=== PATIENT | female | born 1960 | race Caucasian/White ===

== ENCOUNTER 2017-03-24 12:10 | Emergency (ER) | payer MEDICAID, MEDICARE, OTHER ==
--- OUTSIDE RECORDS SUMMARY | 2017-03-24 15:04 | XMS REPORT ---
:1960 External Reference #:[id number] Author Organization [facility] Address [address] [address] Phone [phone] Care Team Providers Name Role Phone Radha Acosta MD Care Team Information Business Consultant Unavailable Payers Type Date Identification Numbers Payment Provider Subscriber Commercial Policy Number: [id number] [employer] Medicare Erika James PayID: [id number] [address] [place] [address] Medigap Part B Policy Number: [id number] Medicaid ### >11 Erika James PayID: [id number] [address] [place] [address] Medigap Part B Effective: 2012 Policy Number: Medicare Erika Perestonirosalba [id number] Expires: 2015 PayID: [id number] [address] [place] [address] Problems Date Description Provider Status Onset: 08/22/2012 Tetraplegia Harpal Martinez DO Active Onset: 06/11/2010 Hypothyroidism Harpal Martinez DO Active Onset: 06/11/2010 Neurogenic bladder Harpal Martinez DO Active Onset: 06/11/2010 Neck pain Harpal Martinez DO Active Onset: 06/11/2010 Constipation Harpal Martinez DO Active Onset: 06/11/2010 Anxiety state Harpal Martinez DO Active Onset: 02/20/2014 Autonomic dysreflexia Harpal Martinez DO Active Onset: 02/20/2014 Mixed hyperlipidemia Harpal Martinez DO Active Onset: 02/20/2014 Menopausal and postmenopausal disorders Harpal Martinez DO Active Onset: 10/17/2014 Vitamin D deficiency Active Onset: 10/17/2014 Postmenopausal state Active Onset: 10/17/2014 Primary hyperoxaluria Active Onset: 10/17/2014 Urine finding Active Onset: 10/17/2014 Hypercalciuria Active Onset: 10/15/2014 Paraplegic immobility syndrome Active Onset: 01/30/2014 Kidney stone Active Onset: 01/14/2014 Urinary bladder stone Active Onset: 05/01/2013 Finding of urological device Active Onset: Urinary tract infectious disease Active Onset: Kidney stone Active Onset: 11/19/2014 Lower urinary tract infectious disease Active Onset: 10/28/2015 Type 2 diabetes mellitus Harpal Martinez DO Active Onset: 10/28/2015 Chronic nonalcoholic liver disease Harpal Martinez DO Active Onset: 10/28/2015 Complete tetraplegia due to lesion at Harpal Martinez DO Active C5-C7 level Onset: 03/02/2016 Late effect of spinal cord injury Harpal Martinez DO Active Family History Date Family Member(s) Problem(s) Comments Mother Hypertension Mother Hypercholesterolemia Mother Pituitary Adenoma Mother Sleep Apnea Mother Osteoarthritis Mother Anxiety Paternal Grandfather Heart Disease Maternal Grandfather Heart Disease Social History Type Date Description Comments Marital Status Single Lives With Mother And Father 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 Allergies, Adverse Reactions, Alerts Date Description Reaction Status Severity Comments 05/09/2013 Levofloxacin active 02/20/2014 Latex active 01/23/2010 Shellfish-Derived Products active 02/20/2014 Levaquin active 02/20/2014 Sulfa Drugs active 02/20/2014 Erythromycin active 01/16/2013 Other Diarrhea active 08/03/2011 Contrast Dye active Severe 08/03/2011 Sulfa Drugs Cross Reactors Swelling active Severe Medications Medication Date Status Form Strength Qnty SIG Indications Ordering Provider Metformin HCL ER 03/07/ Active Tablets ER 500mg 30tabs 1 by E11.9 Cunning 2018 24HR mouth m, Radha, daily MD with first bite of evening meal Urocare Quick 01/05/ Active Misc Medium 1units Use as Michelle, Drain Valve 2016 1/4" X 18 directed Harpal DO Fenofibrate 11/01/ Active Tablets 160mg 90tabs 1 by E78.2 Michelle, 2016 mouth Harpal, every day DO Levothyroxine 11/01/ Active Tablets 75mcg 30tabs 1 by E03.9 Cunningha Sodium 2016 mouth Radha naranjo, every day first thing in morning, no food or meds for 30min Freestyle Test 09/13/ Active Strips 100uni use to E11.9 Michelle, 2016 ts test Harpal every DO morning Freestyle 09/13/ Active Ea 1units Use as E11.9 Michelle, 2016 Directed DO Harpal Freestyle Lite 02/16/ Active 1units Use To Michelle, Meter 2016 Test Harpal Blood DO Sugar Onetouch Delica 08/18/ Active Misc 100uni Use To E11.9 Michelle, Lancets Extra 2015 ts Test Each Lou Rowan 33G Morning DO Docqlace 06/22/ Active Capsules 100mg 60caps Take One K59.00 2015 Capsule Harpal By Mouth DO Twice A Day Allevyn Adhesive 06/16/ Active Pads 3"X3" 10unit Michelle, 2015 s Harpal DO Vitamin D 10/17/ Active Tablets 1000Unit 30tabs Take 1 E55.9 Unknown (Cholecalciferol 2014 tablet by ) mouth daily. Chlorthalidone 10/17/ Active Tablets 25mg 30tabs Take 1/2 R60.0 Jarad, 2015 tab (12.5 Mahmoud mg) by mouth daily. Vinyl Gloves 07/26/ Active Misc 1Box Use as Michelle, 2014 Directed DO Harpal Onetouch Ultra 07/11/ Active Strips 50unit Use To E11.9 Michelle, Blue 2014 s Test Each Harpal, Morning DO Lancet 07/11/ Active A4258 200uni use as E11.9 Michelle, 2014 ts directed DO Harpal Oxybutynin 03/14/ Active Tablets 5mg 60tabs take one N31.1 Cunningha Chloride 2014 tablet by Radha naranjo mouth MD twice a day SF 01/27/ Active Gel 1.1% Michelle, 2009 DO Harpal Mupirocin 01/27/ Active Ointment 2% 22unit Apply Michelle, 2009 s Three Harpal, Times A DO Day as Needed Baclofen / Active Tablets 20mg 120tab Take 30 G82.50 Michelle, s MG In Am Harpal, , Noon DO Take 20 MG, 30 MG At Night S14.125S Diclofenac Active Gel 1% as needed Unknown Sodium Miralax Active Powder 17 grams in 8 oz Unknown of fluid every day as needed constipation Artificial Active Solution 0.1-0. as Needed Unknown Tears 3% Alpha Lipoic Active Tablets 200mg qd Unknown Acid Probiotic Active Capsules qd Unknown Acidophilus Alcohol Swab 09/13/2016 - Hx 100u Use as Directed Michelle, HLF FRST 02/26/2017 nits Daily DO Harpal Freestyle 28G 07/26/2016 - Hx 100u use to test E11. Michelle, Lancets 09/13/2016 nits every morning 9 DO Harpal E13.9 SM Alcohol Prep 04/14/2016 - Hx Pads 70% 100units Use as Needed Michelle , 02/26/2017 DO Harpal Gloves, Exam 04/14/2016 - Hx 100units Wear as Michelle, Vinyl LG 02/26/2017 Needed DO Harpal Augmentin 03/01/2016 - Hx Tablets 875-12 1 by mouth N39 Unknown 03/11/2016 5mg twice a day .0 Augmentin 12/23/2015 - Hx Tablets 500-12 20tabs 1 by mouth H65 Michelle, 03/02/2016 5mg twice a day .02 DO Harpal Prednisone 12/23/2015 - Hx Tablets 20mg 10tabs 1 by mouth H68 Michelle, 03/02/2016 twice a day .00 Harpal, 3 DO Fluticasone 12/16/2015 - Hx Suspension 50mcg/ 1units 1 spray each H91 Digiovanna, Propionate 03/09/2016 Act nostril daily .93 Mariposa, CATH LAB Gloves,DMP 09/22/2015 - Hx 100units use as needed Michelle, Syn/Med 02/26/2017 DO Harpal Alcohol Prep 08/19/2015 - Hx Pads 70% 100units Use as Needed Michelle, Pads 04/14/2016 DO Harpal Red Yeast Rice 07/09/2015 - Hx Tablets 600mg 1 by mouth E78 Michelle, 03/09/2016 twice daily. .2 DO Harpal Acidophilus 07/09/2015 - Hx Tablets 1 tab by Michelle, 02/26/2017 mouth daily. DO Harpal Sensi-Care 06/17/2015 - Hx Ointment 49-15% 2712gm use as Michelle, Protective 02/26/2017 directed Harpal Barrier after bowel DO movement Manual 04/08/2015 - Hx 1units use as G82 Michelle, Wheelchair 02/26/2017 directed .50 DO Harpal Phyphysical 04/08/2015 - Hx evaluation Michelle, Therapy 02/26/2017 and treatment DO Harpal Gloves, DSP 03/06/2015 - Hx 100units use as needed Michelle, Syn/Med 09/22/2015 DO Harpal Low Airloss 02/27/2015 - Hx 1units use as G82 Michelle, Mattress, 02/26/2017 directed .50 Kerry Rowan dx:g82.50 DO Mattress Replacement System W Air Mattress 02/26/2015 - Hx 1units use as G82 Michelle, 02/26/2017 directed .50 Harpal, dx:g82.50 DO Senna-Lax 12/19/2014 - Hx Tablets 8.6mg 60tabs 21 by mouth Michelle, 05/19/2015 every night Harpal, as needed DO Docqlace 12/10/2014 - Hx Capsules 100mg 60caps Take One Michelle, 12/19/2014 Capsule By Harpal, Mouth Twice A DO Day Potassium 10/17/2014 - Hx Tablets ER 10Meq 60tabs Take 1 tablet Unknown Chloride ER 02/11/2015 by mouth Two Times Daily. Ciprofloxacin 09/25/2014 - Hx Solution 0.3% 5ml 2 drops to 372 Harding, HCL 10/02/2014 each eye four .00 Richard, DO times a day x 1 week Clotrimazole 07/11/2014 - Hx Lozenges 10mg QS 1 PO Five 112 Michelle, 12/19/2014 Times Daily .0 Harpal, For 14 Days DO pv Alcohol Prep 04/25/2014 - Hx 100units Use as Michelle, Pads 04/25/2014 Directed Harpal, DO pv Alcohol Prep 04/25/2014 - Hx Pads 100units Use as Needed Michelle, 08/19/2015 Harpal, DO Tizanidine HCL 05/16/2013 - Hx Tablets 2mg Take 2 mg by Unknown 05/19/2015 mouth every 8 (eight) hours as needed. Ventolin HFA 07/22/2012 - Hx Aerosol 108mcg 1units 2 puffs po q Digiovanna, 05/19/2015 /Act 4 hours prn Mariposa, LAVERNE Valacyclovir HCL 03/23/2011 - Hx Tablets 1gm 4tabs take 2 Michelle, 05/19/2015 tablets every Harpal, 12 hours for DO 2 doses if needed for cold sores Polyethylene 11/04/2010 - Hx Powder 3350NF 537gm 17 gms in 8 Michelle, Glycol 3350 12/19/2014 oz of water Harpal, po q d DO Tegaderm Ag Mesh 10/07/2010 - Hx Pads 2"X2" 3Boxes Use as Michelle, Dressing With 06/17/2015 Directed Aaron Rowan 2"X2" DO Docusate Sodium 01/27/2010 - Hx Capsules 100mg 60caps 1 by mouth K59 Michelle, 12/23/2015 twice a day .00 Harpal, DO Levothyroxine 01/23/2010 - Hx Tablets 50mcg 90tabs Take One E03 Michelle, Sodium 11/01/2016 Tablet By .9 Harpal, Mouth Every DO Day Tizanidine HCL - Hx Tablets 1mg 2 Tab PO Am; G82 Cowdery, 08/23/2016 1/4 Tab PO .50 Kirstin R Noon; 2 Tab PO Q hs G90.4 Senna Lax - Hx Tablets 8.6mg Take 1 tablet K59.00 Unknown 07/09/2015 by mouth every other day. Meloxicam - Hx Tablets 15mg Take 15 mg by Unknown 12/19/2014 mouth daily. Polyethylene - Hx Powder 3350NF Take 17 g by K59.00 Unknown Glycol 3350 06/17/2015 mouth Two Times Daily. Potassium Chloride - Hx Tablets ER 10Meq 1 by mouth E87.6 Unknown ER 11/01/2016 twice a day Senna Laxative - Hx Tablets 8.6mg take 2 Unknown 03/06/2017 tablets by mouth at bedtime as needed Klonopin - Hx Tablets 0.5mg 1 PO QHS prn G82.50 Unknown 03/06/2017 G90.4 Tumeric - 03/07/2017 Hx qd Unknown Immunizations CPT Code Status Date Vaccine Reaction Lot # [id number] Given 12/01/2016 Afluria Or Fluvirin Flu Vac Given at [facility], Intramuscular Rte 281 Q2037 Given 11/21/2015 Fluvirin Immunization Given At Pharmacy [facility]/281 Q2037 Given 11/26/2014 Fluvirin Immunization Given At Pharmacy [facility]/281 [id number] Given 12/06/2012 Afluria Or Fluvirin Flu Vac Intramuscular 66905 Given 11/19/2010 Afluria Or Fluvirin Flu Vac Intramuscular 88287 Refused 03/07/2017 Pneumococcal 23 Immunization patient declined shot as Adult Or Immunosuppressed she wanted it in her Patient thigh, per dr acosta if pt wants the vaccine in the thigh she should go to pharmacy to get shot. keshia pinedo Vital Signs Date Vital Result Comment 03/07/2017 Heart Rate 64 /min BP Systolic 114 mmHg BP Diastolic 72 mmHg Respiratory Rate 14 /min Height 61 inches Last Known Height 11/01/2016 Heart Rate 78 /min BP Systolic 118 mmHg BP Diastolic 68 mmHg Respiratory Rate 18 /min 08/03/2016 Heart Rate 68 /min BP Systolic 120 mmHg BP Diastolic 76 mmHg Respiratory Rate 18 /min 06/23/2016 Heart Rate 76 /min BP Systolic 116 mmHg BP Diastolic 70 mmHg Respiratory Rate 16 /min 03/09/2016 Heart Rate 72 /min BP Systolic 110 mmHg BP Diastolic 62 mmHg Respiratory Rate 18 /min 03/02/2016 Heart Rate 78 /min BP Systolic 110 mmHg BP Diastolic 68 mmHg Respiratory Rate 18 /min 12/23/2015 Heart Rate 72 /min BP Systolic 130 mmHg BP Diastolic 72 mmHg Respiratory Rate 18 /min 12/16/2015 Body Temperature 98.7 F Heart Rate 50 /min BP Systolic 126 mmHg BP Diastolic 74 mmHg Respiratory Rate 16 /min O2 % BldC Oximetry 98 % Ra 10/28/2015 Heart Rate 60 /min BP Systolic 112 mmHg BP Diastolic 84 mmHg Respiratory Rate 16 /min 06/17/2015 Heart Rate 78 /min BP Systolic 108 mmHg BP Diastolic 68 mmHg Respiratory Rate 18 /min 05/19/2015 Heart Rate 78 /min BP Systolic 130 mmHg BP Diastolic 80 mmHg Respiratory Rate 18 /min 02/11/2015 Weight 93.62 lb BP Systolic 66 mmHg Respiratory Rate 18 /min 01/22/2015 Body Temperature 97.5 F 01/22/2015 Heart Rate 74 /min BP Systolic 94 mmHg BP Diastolic 56 mmHg Respiratory Rate 16 /min O2 % BldC Oximetry 99 % 01/20/2015 Weight 166.00 lb Height 62.01 inches 5'2.01" BMI (Body Mass Index) 30.35 kg/m2 12/19/2014 Heart Rate 78 /min BP Systolic 100 mmHg BP Diastolic 72 mmHg Respiratory Rate 18 /min 10/11/2014 Weight 103.88 lb Heart Rate 78 /min Respiratory Rate 18 /min 09/25/2014 Heart Rate 60 /min BP Systolic 100 mmHg BP Diastolic 60 mmHg Respiratory Rate 18 /min 07/11/2014 Heart Rate 66 /min BP Systolic 110 mmHg BP Diastolic 60 mmHg Respiratory Rate 18 /min 02/20/2014 Heart Rate 66 /min 64 Reg BP Systolic 90 mmHg BP Diastolic 66 mmHg BP Systolic Recheck 100 mmHg BP Diastolic Recheck 70 mmHg Respiratory Rate 18 /min N/A 01/04/2014 Heart Rate 66 /min BP Systolic 112 mmHg BP Diastolic 66 mmHg 10/03/2013 BP Systolic 110 mmHg BP Diastolic 60 mmHg 10/03/2013 Heart Rate 72 /min 68 Reg BP Systolic 102 mmHg BP Diastolic 62 mmHg Respiratory Rate 18 /min Results Test Date Test Result H/L Range Note Laboratory test finding 02/28/2017 TSH 2.15 uIU/mL 0.35-4.94 1 Free T4 1.46 ng/dL 0.70-1.48 1 Comprehensive Met Panel-[facility] 02/28/2017 Sodium 136 mmol/L 135-146 1, 2 Potassium 4.0 mmol/L 3.5-5.2 1 Chloride# 100 mmol/L 97-110 1, 3 Carbon Dioxide 25 mmol/L 24-34 1 Glucose 205 mg/dL High 70-105 1 Creatinine 0.7 mg/dL 0.5-1.4 1 Calcium 9.8 mg/dL 8.5-10.2 1 Total Protein 6.8 g/dL 6.0-8.0 1 Albumin 4.3 g/dL 3.6-4.9 1 Globulin 2.5 g/dL 2.0-3.5 1 A/G Ratio 1.7 Ratio 1.0-2.2 1 Total Bilirubin 0.4 mg/dL 0.1-1.3 1 Alkaline Phosphatase 60 U/L 24-140 1 Alt 13 U/L 3-42 1 Ast 12 U/L 8-42 1 Yennifer Egfr >60 >60 1, 4 Non Yennifer Egfr >60 >60 1, 5 Anion Gap 11 mmol/L 7-16 1, 6 BUN 29 mg/dL High 6-26 1 Lipid 02/28/2017 Cholesterol 148 mg/dL 50-199 1 Triglycerides 241 mg/dL High 30-200 1 HDL 27 mg/dL Low 35-85 1, 7 Chol/ HDL Ratio 5.4 ratio 3.7-5.6 1 VLDL 48 mg/dL High 2-29 1 LDL (Calc) 73 mg/dL 20-99 1, 8 Laboratory test 02/28/2017 Hepatitis C NON REACTIVE Non Reactive 1, 9 finding Virus Antibody S/[facility]atio([facility] CBC With Auto Diff 02/28/2017 WBC 6.2 K/uL 4.1-11.0 1 RBC 3.86 M/uL Low 4.00-5.40 1 Hemoglobin 11.4 gm/dL Low 12.0-16.0 1 Hematocrit 33.6 % Low 36.0-47.0 1 MCV 87.1 fL 80.0-97.0 1 MCH 29.5 pg 27.0-32.0 1 MCHC 33.9 g/dL 32.0-36.0 1 RDW 13.8 % 11.5-14.5 1 PLT Count 277 K/ul 140-400 1 MPV 10.3 FL 7.1-10.7 1 Neutrophil 59.6 % 35.0-75.0 1 Lymphocyte 30.4 % 16.0-52.0 1 Monocyte 7.7 % 2.0-10.0 1 Eosinophil 1.7 % 0.0-5.0 1 Basophil 0.6 % 0.0-4.0 1 Abs Neutrophils 3.7 K/uL 2.1-8.0 1 Abs Lymphocytes 1.9 K/uL 0.8-5.5 1 Abs Monocytes 0.5 K/uL 0.1-1.0 1 Abs Eosinophils 0.1 K/uL 0.0-0.5 1 Abs Basophils 0.0 K/uL 0.0-0.3 1 Hemoglobin A1c 02/28/2017 Hemoglobin A1c 7.5 % High 4.1-5.9 1 Estimated Average Glucose Calc 169 mg/dL High 71-140 1 Laboratory test 02/28/2017 Urine Culture Microbiology res 1, 10 finding <SEE NOTE> Laboratory test 10/28/2016 Microalbumin,Random 7.7 mg/L < 11 finding Urine 20.0 Laboratory test 10/25/2016 Vitamin 35.4 ng/mL 30.0-100 12, 13 finding D,25-Hydroxy .0 Lipid 10/25/2016 Cholesterol 191 mg/dL <200 12, 14 Triglycerides 477 mg/dL High <150 12, 15 HDL Cholesterol 31 mg/dL Low >45 12, 16 LDL-Cholesterol TNP mg/dL < 100 12, 17 Hepatic Panel (LFT) 10/25/2016 Total Protein 6.9 g/dL 6.4-8.2 12 Albumin 3.4 g/dL 3.4-5.0 12 Globulin 3.5 g/dL 1.9-4.3 12 Alb/Glob 1.0 ratio 12 Bilirubin,Total 0.4 mg/dL 0.2-1.0 12 Bilirubin,Direct < 0.1 mg/dL 0.0-0.2 12 Bilirubin,Indirect 0.3 mg/dL 0.0-0.9 12 Sgot/Ast 13 U/L Low 15-37 12, 18 SGPT/Alt 25 U/L 12-78 12 Alkaline Phosphatase 113 U/L 45-117 12 Laboratory test finding 10/25/2016 Thyroid Stim Hormone 4.30 uIU/mL High 0.30-4.20 12 Free T4 1.14 ng/dL 0.76-1.46 12 Basic (BMP) 10/25/2016 Glucose 142 mg/dL High 74-106 12 BUN 22 mg/dL High 7-18 12 Creatinine 0.6 mg/dL 0.6-1.3 12 Glom Filtration Rate, Estimate >60 mL/min >60 12 If >60 mL/min >60 12, 19 BUN/Creat 36.6 ratio 12 Sodium 137 mmol/L 136-145 12 Potassium 3.9 mmol/L 3.5-5.1 12 Chloride 102 mmol/L 98-107 12 Carbon Dioxide 28 mmol/L 21-32 12 Anion Gap 7 mEq/L Low 8-16 12 Calcium 8.9 mg/dL 8.5-10.1 12 Hemoglobin A1c 10/25/2016 Glycohemoglobin (A1c) 7.4 % High 4.2-6.5 12, 20 eAG 166 mg/dL 12 Genital Culture W/ Gram 08/09/2016 Gram Stain GRAM STAIN INDIC <SEE 21, 22 Stain NOTE> Gram Stain NO WHITE BLOOD C <SEE NOTE> 21, 23 Gram Stain FEW EPITHELIAL C <SEE NOTE> 21, 24 Genital Culture GENITAL STACY 21 CBC 06/18/2016 White Blood Count 6.5 K/uL 3.1-10.7 25 Red Blood Count 3.52 M/uL Low 3.90-5.40 25 Hemoglobin 10.2 gm/dL Low 11.6-15.8 25 Hematocrit 31.5 % Low 36.0-46.1 25 Mean Cell Volume 89.5 fl 80.9-99.0 25 Mean Corpuscular HGB 29.0 pg 25.9-32.7 25 Mean Corpuscular HGB Conc 32.4 g/dL 30.8-34.3 25 Platelet Count 218 K/uL 150-400 25 Red Cell Distri Width %CV 13.2 % 11.7-14.4 25 Mean Platelet Volume 12.3 fL 8.9-12.4 25 Basic Metabolic Panel 06/18/2016 Glucose 171 mg/dL High 74-106 25 BUN 10 mg/dL 7-18 25 Creatinine 0.7 mg/dL 0.6-1.3 25 Glom Filtration Rate, Estimate >60 mL/min >60 25 If >60 mL/min >60 25, 26 BUN/Creat 14.2 ratio 25 Sodium 140 mmol/L 136-145 25 Potassium 3.8 mmol/L 3.5-5.1 25 Chloride 104 mmol/L 98-107 25 Carbon Dioxide 28 mmol/L 21-32 25 Anion Gap 8 mEq/L 8-16 25 Calcium 8.7 mg/dL 8.5-10.1 25 Urinalysis With Microscopic 06/16/2016 Urine Color YELLOW Yellow 27 Urine Clarity CLEAR Clear 27 Urine Glucose - Dipstick NEGATIVE mg/dL Negative 27 Urine Bilirubin - Dipstick NEGATIVE Negative 27 Urine Ketone NEGATIVE mg/dL Negative 27 Urine Specific [place] <=1.005 Low 1.010-1.030 27 Urine Blood TRACE Negative 27 Urine PH 7.0 6.5-7.5 27 Urine Protein - Dipstick NEGATIVE mg/dL Negative 27 Urine Urobilinogen - Dipstick 0.2 E.U./dL 0.2-1.0 27 Urine Nitrite - Dipstick POSITIVE Negative 27 Urine Leuk Esterase SMALL Negative 27 Urine RBC 0-2 rbc/hpf 0-2 27 Urine WBC 0-2 wbc/hpf 0-7 27 Urine Epithelial Cells VERY FEW /lpf None Seen 27 Urine Bacteria FEW None Seen 27 Urine Amorph Sediment SMALL Negative 27 Source: URINE, CLEAN CAT <SEE 27, 28 NOTE> Culture If Indicated 06/16/2016 Culture If Indicated CULTURE TO FOLLO 27, 29 Comment Comment <SEE NOTE> Source: URINE, CLEAN CAT <SEE NOTE> 27, 30 Urine Culture 06/16/2016 Urine Culture MIXED URETHRAL F <SEE NOTE> 31, 32 Quantity > 100,000 CFU/mL 31, 33 CBS W/Automated Diff 06/16/2016 White Blood Count 7.9 K/uL 3.1-10.7 34 Red Blood Count 3.92 M/uL 3.90-5.40 34 Hemoglobin 11.5 gm/dL Low 11.6-15.8 34 Hematocrit 34.7 % Low 36.0-46.1 34 Mean Cell Volume 88.5 fl 80.9-99.0 34 Mean Corpuscular HGB 29.3 pg 25.9-32.7 34 Mean Corpuscular HGB Conc 33.1 g/dL 30.8-34.3 34 Platelet Count 263 K/uL 150-400 34 Red Cell Distri Width SD 41.4 fl 3-47 34 Red Cell Distri Width %CV 13.2 % 11.7-14.4 34 Mean Platelet Volume 12.1 fL 8.9-12.4 34 Neut% 62.6 % 40.4-72.8 34 Lymph % 29.1 % 20.0-42.0 34 [place] % 6.6 % 4.3-13.2 34 Eo% 1.4 % 0.0-6.6 34 Bas% 0.3 % 0.0-1.1 34 Neut# 4.94 K/uL 1.8-7.0 34 Lymph # 2.29 K/uL 1.0-4.0 34 [place] # 0.52 K/uL 0.3-0.9 34 Eos # 0.11 K/uL 0.0-0.5 34 Baso # 0.02 K/uL 0.0-0.1 34 Comprehensive Metabolic Panel 06/16/2016 Glucose 167 mg/dL High 74-106 34 BUN 18 mg/dL 7-18 34 Creatinine 0.6 mg/dL 0.6-1.3 34 Glom Filtration Rate, Estimate >60 mL/min >60 34 If >60 mL/min >60 34, 35 BUN/Creat 30.0 ratio 34 Sodium 137 mmol/L 136-145 34 Potassium 3.7 mmol/L 3.5-5.1 34 Chloride 102 mmol/L 98-107 34 Carbon Dioxide 28 mmol/L 21-32 34 Anion Gap 7 mEq/L Low 8-16 34 Calcium 8.5 mg/dL 8.5-10.1 34 Total Protein 6.9 g/dL 6.4-8.2 34 Albumin 3.2 g/dL Low 3.4-5.0 34 Globulin 3.7 g/dL 1.9-4.3 34 Alb/Glob 0.9 ratio 34 Bilirubin,Total 0.4 mg/dL 0.2-1.0 34 Sgot/Ast 22 U/L 15-37 34 SGPT/Alt 26 U/L 12-78 34 Alkaline Phosphatase 137 U/L High 45-117 34 Laboratory test finding 06/16/2016 Lipase 140 U/L 73-393 34 Urinalysis With Microscopic 04/20/2016 Urine Color YELLOW Yellow 36 Urine Clarity SL CLOUDY Clear 36 Urine Glucose - Dipstick NEGATIVE mg/dL Negative 36 Urine Bilirubin - Dipstick NEGATIVE Negative 36 Urine Ketone NEGATIVE mg/dL Negative 36 Urine Specific [place] 1.015 1.010-1.030 36 Urine Blood TRACE Negative 36 Urine PH 7.5 6.5-7.5 36 Urine Protein - Dipstick NEGATIVE mg/dL Negative 36 Urine Urobilinogen - Dipstick 0.2 E.U./dL 0.2-1.0 36 Urine Nitrite - Dipstick POSITIVE Negative 36 Urine Leuk Esterase LARGE Negative 36 Urine RBC 2-5 rbc/hpf 0-2 36 Urine WBC > 50 wbc/hpf High 0-7 36 Urine Epithelial Cells FEW /lpf None Seen 36 Urine Bacteria MODERATE None Seen 36 Urine Amorph Sediment MODERATE Negative 36 Culture If Indicated 04/20/2016 Culture If Indicated CULTURE TO FOLLO 36, 37 Comment Comment <SEE NOTE> Ast-GN67 04/20/2016 Nitrofurantoin 64 36 Ampicillin <=2 36 Cefazolin >=64 36 Ampicillin/Sulbactam 16 36 Ciprofloxacin <=0.25 36 Piperacillin/Tazobactam <=4 36 Ceftazidime <=1 36 Ceftriaxone <=1 36 Cefepime <=1 36 Levofloxacin <=0.12 36 Gentamicin 2 36 Tobramycin 2 36 Penicillin G 2 36 Tetracycline >=16 36 Nitrofurantoin <=16 36 Ciprofloxacin 1 36 Levofloxacin 1 36 Vancomycin 2 36 Urine Culture 04/20/2016 Urine Culture PROTEUS VULGARIS 36, 38 Quantity > 100,000 CFU/mL 36, 39 Urine Culture ENTEROCOCCUS CAMILA <SEE NOTE> 36, 40 Quantity > 100,000 CFU/mL 36, 41 Ast-GN67 03/10/2016 Nitrofurantoin 64 42 Trimethoprim/Sulfamethoxazole <=20 42 Ampicillin >=32 42 Cefazolin >=64 42 Ampicillin/Sulbactam >=32 42 Ciprofloxacin <=0.25 42 Piperacillin/Tazobactam <=4 42 Ceftazidime <=1 42 Ceftriaxone <=1 42 Cefepime <=1 42 Levofloxacin <=0.12 42 Gentamicin 2 42 Tobramycin 2 42 Culture Urine 03/10/2016 Urine Culture MORG. MORGANII S <SEE NOTE> 42, 43 Quantity > 100,000 CFU/mL 42, 44 CBC With Auto Diff 03/10/2016 White Blood Count 7.3 K/uL 3.1-10.7 42 Red Blood Count 3.85 M/uL Low 3.90-5.40 42 Hemoglobin 11.3 gm/dL Low 11.6-15.8 42 Hematocrit 33.8 % Low 36.0-46.1 42 Mean Cell Volume 87.8 fl 80.9-99.0 42 Mean Corpuscular HGB 29.4 pg 25.9-32.7 42 Mean Corpuscular HGB Conc 33.4 g/dL 30.8-34.3 42 Platelet Count 281 K/uL 155-360 42 Red Cell Distri Width SD 43.0 fl 3-47 42 Red Cell Distri Width %CV 13.8 % 11.7-14.4 42 Mean Platelet Volume 11.6 fL 8.9-12.4 42 Neut% 61.1 % 40.4-72.8 42 Lymph % 29.5 % 20.0-42.0 42 [place] % 6.7 % 4.3-13.2 42 Eo% 2.2 % 0.0-6.6 42 Bas% 0.5 % 0.0-1.1 42 Neut# 4.46 K/uL 1.8-7.0 42 Lymph # 2.15 K/uL 1.0-4.0 42 [place] # 0.49 K/uL 0.3-0.9 42 Eos # 0.16 K/uL 0.0-0.5 42 Baso # 0.04 K/uL 0.0-0.1 42 Anticoagulant Therapy? NO 42 BMP (Basic) 03/10/2016 Glucose 128 mg/dL High 74-106 42 BUN 24 mg/dL High 7-18 42 Creatinine 0.6 mg/dL 0.6-1.3 42 Glom Filtration Rate, Estimate >60 mL/min >60 42 If >60 mL/min >60 42, 45 BUN/Creat 40.0 ratio 42 Sodium 139 mmol/L 136-145 42 Potassium 3.6 mmol/L 3.5-5.1 42 Chloride 103 mmol/L 98-107 42 Carbon Dioxide 26 mmol/L 21-32 42 Anion Gap 10 mEq/L 8-16 42 Calcium 8.7 mg/dL 8.5-10.1 42 PTT (Partial 03/10/2016 Act Partial 31.8 seconds 23.4-35.0 42 Thromboplastin)RL Thrombo Time Anticoagulant Therapy? NO 42 PT With Inr 03/10/2016 Protime 13.2 seconds 12.0-14.4 42 Inr 1.0 0.9-1.1 42, 46 Anticoagulant Therapy? NO 42 Vitamin D,25-Hydroxy 10/22/2015 Vitamin D,25-Hydroxy 35.8 ng/mL 30.0- 100.0 47, 48 @[facility] Pat Id: [id number] 47 @[facility] Req #: [phone] 47 Free T4 10/22/2015 Free T4 1.31 ng/dL 0.76-1.46 47 @[facility] Pat Id: [id number] 47 @[facility] Req #: [phone] 47 Is Patient Fasting? Fasting 47 Thyroid Stim Hormone 10/22/2015 Thyroid Stim Hormone 3.19 uIU/mL 0.30- 4.20 47 @[facility] Pat Id: [id number] 47 @[facility] Req #: [id number] 47 Is Patient Fasting? Fasting 47 LDL Cholesterol Profile 10/22/2015 Cholesterol 165 mg/dL <200 47, 49 Triglycerides 467 mg/dL High <150 47, 50 HDL Cholesterol 30 mg/dL Low >40 47, 51 LDL-Cholesterol TNP mg/dL < 100 47, 52 @[facility] Pat Id: [id number] 47 @[facility] Req #: [id number] 47 Is Patient Fasting? Fasting 47 Microalbumin,Random Urine 10/22/2015 Microalbumin,Urine 6.1 mg/L < 20.0 47 @[facility] Pat Id: [id number] 47 @[facility] Req #: [id number] 47 Hemoglobin A1c 10/22/2015 Glycohemoglobin (A1c) 7.1 % High 4.2-6.3 47, 53 eAG 157 mg/dL 47 @[facility] Pat Id: [id number] 47 @[facility] Req #: [id number] 47 Basic Metabolic Panel 10/22/2015 Glucose 124 mg/dL High 74-106 47 BUN 17 mg/dL 7-18 47 Creatinine 0.6 mg/dL 0.6-1.3 47 Glom Filtration Rate, Estimate >60 mL/min >60 47 If >60 mL/min >60 47, 54 BUN/Creat 28.3 ratio 47 Sodium 138 mmol/L 136-145 47 Potassium 3.9 mmol/L 3.5-5.1 47 Chloride 104 mmol/L 98-107 47 Carbon Dioxide 26 mmol/L 21-32 47 Anion Gap 8 mEq/L 8-16 47 Calcium 8.6 mg/dL 8.5-10.1 47 @[facility] Pat Id: [id number] 47 @[facility] Req #: [id number] 47 Is Patient Fasting? Fasting 47 Liver Function Tests 10/22/2015 Total Protein 7.3 g/dL 6.4-8.2 47 Albumin 3.4 g/dL 3.4-5.0 47 Globulin 3.9 g/dL 1.9-4.3 47 Alb/Glob 0.9 ratio 47 Bilirubin,Total 0.4 mg/dL 0.2-1.0 47 Bilirubin,Direct 0.1 mg/dL 0.0-0.2 47 Bilirubin,Indirect 0.3 mg/dL 0.0-0.9 47 Sgot/Ast 13 U/L Low 15-37 47, 55 SGPT/Alt 20 U/L 12-78 47 Alkaline Phosphatase 104 U/L 45-117 47 @[facility] Pat Id: [id number] 47 @[facility] Req #: [id number] 47 Is Patient Fasting? Fasting 47 Microalbumin,Random Urine 02/06/2015 Microalbumin,Urine < 5.0 < 20.0 mg/L Glycohemoglobin A1c 02/05/2015 Glycohemoglobin (A1c) 6.1 % 4.2-6.5 56 eAG 128 mg/dL Microalbumin,Random Urine 02/05/2015 Microalbumin,Random Urine Canceled By Lab LDL Cholesterol Profile 02/05/2015 Cholesterol 176 mg/dL <2 57 00 Triglycerides 469 mg/dL High <150 58 HDL Cholesterol 28 mg/dL Low >45 59 LDL-Cholesterol See Note mg/dL < 100 60 BMP (Basic) 02/05/2015 Glucose 116 mg/dL High 74-106 BUN 17 mg/dL 7-18 Creatinine 0.6 mg/dL 0.6-1.3 Glom Filtration Rate, Estimate >60 mL/min >60 If >60 mL/min >60 61 BUN/Creat 28.3 ratio Sodium 137 mmol/L 136-145 Potassium 3.7 mmol/L 3.5-5.1 Chloride 106 mmol/L 98-107 Carbon Dioxide 24 mmol/L 21-32 Anion Gap 7 mEq/L Low 8-16 Calcium 9.0 mg/dL 8.5-10.1 Laboratory test finding 02/05/2015 Thyroid Stim Hormone 3.68 uIU/mL 0.36- 3.74 Free T4 1.30 ng/dL 0.76-1.46 Liver Function Tests 02/05/2015 Total Protein 7.0 g/dL 6.4-8.2 Albumin 3.3 g/dL Low 3.4-5.0 Globulin 3.7 g/dL 1.9-4.3 Alb/Glob 0.9 ratio Bilirubin,Total 0.4 mg/dL 0.2-1.0 Bilirubin,Direct 0.1 mg/dL 0.0-0.2 Bilirubin,Indirect 0.3 mg/dL 0.0-0.9 Sgot/Ast 10 U/L Low 15-37 62 SGPT/Alt 21 U/L 12-78 Alkaline Phosphatase 108 U/L 45-117 Laboratory test finding 02/05/2015 Vitamin D,25-Hydroxy 30.5 ng/mL 30.0- 100.0 63 Rout Urine W/ Micro -RL 10/30/2014 Color YELLOW 64 Appearance CLOUDY 64 Spec Grav Urine 1.011 (1.003-1.030) 64 PH Urine 6.0 (5.0-7.5) 64 Leuk Esterase 2+ (Neg) 64 Nitrite Urine POSITIVE (Neg) 64 Protein Urine NEGATIVE (Neg) 64 Glucose Urine NEGATIVE (Neg) 64 Ketone Urine NEGATIVE (Neg) 64 Urobilinogen 0.2 mg/dL (0-1.0) 64 Bilirubin Urine NEGATIVE (Neg) 64 Blood/HGB Urine 1+ (Neg) 64 Urine WBC * 6-10 [HPF] (0-5) 64 Urine RBC 0-2 [HPF] (0-2) 64 Bacteria 4+ [HPF] 64, 65 Basic (BMP) 10/30/2014 Sodium 136 mmol/L 134-142 66 Potassium 4.6 mmol/L 3.5-5.2 66 Chloride 103 mmol/L 97-109 66 Carbon Dioxide 25 mmol/L 24-34 66 Glucose 148 mg/dL High 70-105 66 BUN 20 mg/dL 6-26 66 Creatinine 0.6 mg/dL 0.5-1.4 66 Calcium 9.2 mg/dL 8.5-10.2 66 Anion Gap 13 mmol/L 6-14 66 Non Yennifer Egfr >60 >60 66, 67 Yennifer Egfr >60 >60 66, 68 Basic (BMP) 10/01/2014 Sodium 136 mmol/L 134-142 69 Potassium 4.4 mmol/L 3.5-5.2 69 Chloride 102 mmol/L 97-109 69 Carbon Dioxide 25 mmol/L 24-34 69 Glucose 113 mg/dL High 70-105 69 BUN 21 mg/dL 6-26 69 Creatinine 0.6 mg/dL 0.5-1.4 69 Calcium 9.4 mg/dL 8.5-10.2 69 Anion Gap 13 mmol/L 6-14 69 Non Yennifer Egfr >60 >60 69, 70 Yennifer Egfr >60 >60 69, 71 Laboratory test finding 10/01/2014 Hemoglobin A1c 6.5 % 4.1-6.5 69 Urine Culture 07/02/2014 Urine Culture See Note 72 Liver Function Tests 07/02/2014 Total Protein 7.3 g/dL 6.4-8.2 Albumin 3.5 g/dL 3.4-5.0 Globulin 3.8 g/dL 1.9-4.3 Alb/Glob 0.9 ratio Bilirubin,Total 0.5 mg/dL 0.2-1.0 Bilirubin,Direct 0.1 mg/dL 0.0-0.2 Bilirubin,Indirect 0.4 mg/dL 0.0-0.9 Sgot/Ast 14 U/L Low 15-37 73 SGPT/Alt 27 U/L 12-78 Alkaline Phosphatase 131 U/L High 45-117 Urinalysis With Microscopic 07/02/2014 Urine Color YELLOW Yellow Urine Clarity SL CLOUDY Clear Urine Glucose - Dipstick NEGATIVE mg/dL Negative Urine Bilirubin - Dipstick NEGATIVE Negative Urine Ketone NEGATIVE mg/dL Negative Urine Specific [place] 1.015 1.010-1.030 Urine Blood LARGE High Negative Urine PH 7.5 6.5-7.5 Urine Protein - Dipstick 100 mg/dL High Negative Urine Urobilinogen - Dipstick 0.2 E.U./dL 0.2-1.0 Urine Nitrite - Dipstick POSITIVE High Negative Urine Leuk Esterase LARGE High Negative Urine RBC >50 rbc/hpf High 0-2 Urine WBC > 50 wbc/hpf High 0-7 Urine Epithelial Cells FEW NONESEEN/lpf Urine Mucus SMALL NONESEEN Urine Amorph Sediment SMALL Negative Laboratory test finding 07/02/2014 Culture If Indicated See Note 74 Comment CBC W/Automated Diff 07/02/2014 White Blood Count 12.9 K/uL High 3.1-10.7 Red Blood Count 3.98 M/uL 3.90-5.40 Hemoglobin 11.7 gm/dL 11.6-15.8 Hematocrit 34.8 % Low 36.0-46.1 Mean Cell Volume 87.4 fl 80.9-99.0 Mean Corpuscular HGB 29.4 pg 25.9-32.7 Mean Corpuscular HGB Conc 33.6 g/dL 30.8-34.3 Platelet Count 251 K/uL 155-360 Red Cell Distri Width SD 41.9 fl 3-47 Red Cell Distri Width %CV 13.5 % 11.7-14.4 Mean Platelet Volume 12.4 fL 8.9-12.4 Neut% 76.4 % High 40.4-72.8 Lymph % 16.3 % Low 17.0-46.1 [place] % 6.2 % 4.3-13.2 Eo% 0.9 % 0.0-6.6 Bas% 0.2 % 0.0-1.1 Neut# 9.84 K/uL High 1.0-7.0 Lymph # 2.10 K/uL 1.8-7.0 [place] # 0.80 K/uL 0.3-0.9 Eos # 0.12 K/uL 0.0-0.5 Baso # 0.03 K/uL 0.0-0.1 Laboratory test finding 07/02/2014 Lipase 109 U/L 73-393 Urine Screen 07/02/2014 Urine Screen See Note 75 Basic Metabolic Panel 07/02/2014 Glucose 192 mg/dL High 74-106 BUN 32 mg/dL High 7-18 Creatinine 1.3 mg/dL 0.6-1.3 Glom Filtration Rate, Estimate 46 mL/min >60 If 55 mL/min >60 76 BUN/Creat 24.6 ratio Sodium 134 mmol/L Low 136-145 Potassium 4.0 mmol/L 3.5-5.1 Chloride 100 mmol/L 98-107 Carbon Dioxide 24 mmol/L 21-32 Anion Gap 10 mEq/L 8-16 Calcium 8.8 mg/dL 8.5-10.1 Basic (BMP) 06/25/2014 Sodium 136 mmol/L 134-142 77 Potassium 4.4 mmol/L 3.5-5.2 77 Chloride 104 mmol/L 97-109 77 Carbon Dioxide 23 mmol/L Low 24-34 77 Glucose 146 mg/dL High 70-105 77 BUN 29 mg/dL High 6-26 77 Creatinine 0.6 mg/dL 0.5-1.4 77 Calcium 9.4 mg/dL 8.5-10.2 77 Anion Gap 13 mmol/L 6-14 77 Non Yennifer Egfr >60 >60 77, 78 Yennifer Egfr >60 >60 77, 79 Laboratory test finding 06/25/2014 Hemoglobin A1c 7.7 % High 4.1-5.9 77 TSH 2.87 uIU/mL 0.35-4.94 77 Free T4 1.07 ng/dL 0.70-1.48 77 Lipid Treatment 06/25/2014 Cholesterol 190 mg/dL 50-199 77 Triglycerides 579 mg/dL High 30-150 77 HDL 25 mg/dL Low 45-85 77, 80 Chol/ HDL Ratio 7.6 ratio High 3.7-5.6 77 Alt 14 U/L 3-42 77 Ast 12 U/L 8-42 77 Laboratory test finding 06/25/2014 Direct LDL 72 mg/dL 20-99 77, 81 Laboratory test finding 04/26/2014 Polyp Colon And/Or See Note 82 Rectum Laboratory test finding 03/27/2014 HPV High Risk Negative Negative 83 Laboratory test finding 01/20/2014 Alb/Glob 0.9 ratio Albumin 3.5 g/dL 3.4-5.0 Alkaline Phosphatase 113 U/L 45-117 Anion Gap 11 mEq/L 8-16 BUN 21 mg/dL High 7-18 BUN/Creat 26.2 ratio Bilirubin,Total 0.4 mg/dL 0.2-1.0 Calcium 8.6 mg/dL 8.5-10.1 Carbon Dioxide 27 mmol/L 21-32 Chloride 105 mmol/L 98-107 Creatinine 0.8 mg/dL 0.6-1.3 Globulin 3.8 g/dL 1.9-4.3 Glom Filtration Rate, Estimate >60 mL/min >60 Glucose 109 mg/dL High 74-106 If >60 mL/min >60 84 Magnesium 1.8 mg/dL 1.8-2.4 Potassium 4.1 mmol/L 3.5-5.1 SGPT/Alt 28 U/L 12-78 Sgot/Ast 15 U/L 15-37 Sodium 139 mmol/L 136-145 Total Protein 7.3 g/dL 6.4-8.2 CBS W/Automated Diff 01/20/2014 Bas% 0.3 % 0.0-1.1 Baso # 0.01 K/uL 0.0-0.1 Eo% 1.7 % 0.0-6.6 Eos # 0.06 K/uL 0.0-0.5 Hematocrit 34.8 % Low 36.0-46.1 Hemoglobin 11.5 gm/dL Low 11.6-15.8 Lymph # 1.17 K/uL 0.8-3.4 Lymph % 33.9 % 17.0-46.1 Mean Cell Volume 91.6 fl 80.9-99.0 Mean Corpuscular HGB 30.3 pg 25.9-32.7 Mean Corpuscular HGB Conc 33.0 g/dL 30.8-34.3 Mean Platelet Volume 12.7 fL High 8.9-12.4 [place] # 0.21 K/uL Low 0.3-0.9 [place] % 6.1 % 4.3-13.2 Neut# 2.00 K/uL 1.0-7.0 Neut% 58.0 % 40.4-72.8 Platelet Count 277 K/uL 155-360 Red Blood Count 3.80 M/uL Low 3.90-5.40 Red Cell Distri Width %CV 13.6 % 11.7-14.4 Red Cell Distri Width SD 44.3 fl 3-47 White Blood Count 7.2 K/uL 3.1-10.7 Laboratory test finding 11/16/2013 BUN 18.0 mg/dL 7.0-18.0 BUN/Creat Ratio 25.7 ratio High 12.0-20.0 Calcium 9.5 mg/dL 8.7-10.5 Chloride 102.0 mmol/L 98.0-107.0 Co2 25.0 mmol/L 22.0-30.0 Creatinine-Serum 0.7 mg/dL 0.7-1.2 Glucose 207.0 mg/dL High 75.0-110.0 [place] 3.9 mmol/L 3.6-5.0 Sodium 139.0 mmil/L 137.0-145.0 eGFR 93.0 Laboratory test finding 10/03/2013 % A1c 6.4 % 4.1-6.5 Alt 19.0 U/L 9.0-52.0 Ast 13.0 U/L Low 14.0-36.0 BUN 22.0 mg/dL High 7.0-18.0 BUN/Creat Ratio 27.5 ratio High 12.0-20.0 Calcium 9.4 mg/dL 8.7-10.5 Chloride 104.0 mmol/L 98.0-107.0 Co2 25.0 mmol/L 22.0-30.0 Creatinine-Serum 0.8 mg/dL 0.7-1.2 FT4 1.21 ng/dL 0.75-1.54 Glucose 205.0 mg/dL High 75.0-110.0 [place] 4.1 mmol/L 3.6-5.0 Sodium 140.0 mmil/L 137.0-145.0 TSH 3.36 uIU/ml 0.50-6.00 eGFR 79.7 Lipid Panel 10/03/2013 Chol/HDL Ratio 6.9 ratio Cholesterol 193.0 mg/dL 50.0-199.0 HDL 28.0 mg/dL Low 45.0-86.0 LDL, Calculated 61.0 mg/dL 20.0-129.0 Triglycerides 520.0 mg/dL High 30.0-150.0 vLDL 104.0 ng/dL Laboratory test finding 02/21/2013 Urine Bacteria Moderate None Seen High Urine Bilirubin - Dipstick Negative Negative Urine Blood Negative Negative Urine Clarity SL Cloudy Clear Urine Color Yellow Yellow Urine Culture See Note 85 Urine Epithelial Cells Few None Seen /lpf Urine Glucose - Dipstick Negative mg/dL Negative Urine Ketone 15 mg/dL High Negative Urine Leuk Esterase Trace High Negative Urine Mucus Small None Seen Urine Nitrite - Dipstick Positive High Negative Urine PH 6.5 6.5-7.5 Urine Protein - Dipstick 100 mg/dL High Negative Urine RBC None Seen rbc/hpf 0-7 Urine Screen See Note 86 Urine Specific [place] >=1.030 1.010-1.030 Urine Trip Phos Crystals Moderate None Seen Urine Urobilinogen - Dipstick 0.2 E.U./dL 0.2-1.0 Urine WBC 5-10 wbc/hpf 0-7 Laboratory test finding 12/29/2012 Direct LDL Cholesterol 111 mg/dL High 0 -99 87 Laboratory test finding 12/29/2012 % A1c 5.8 % 4.1-6.5 % Baso. 0.9 % 0.0-2.0 % Eos. 2.0 % 0.0-4.0 % Lymph 28 % 20-44 % [place] 6.2 % 2.0-10.0 % Jose 63 % 50-70 Absolute Baso. 0.1 K/ul 0.0-0.3 Absolute Eos. 0.1 K/ul 0.0-0.5 Absolute Lymph. 1.9 K/ul 0.8-4.8 Absolute [place]. 0.4 K/ul 0.1-1.0 Absolute Jose. 4.37 K/ul 2.05-7.63 BUN 19.0 mg/dL High 7.0-18.0 BUN/Creat Ratio 27.1 ratio High 12.0-20.0 Calcium 9.7 mg/dL 8.7-10.5 Chloride 103.0 mmol/L 98.0-107.0 Co2 25.0 mmol/L 22.0-30.0 Creatinine-Serum 0.7 mg/dL 0.7-1.2 FT4 1.18 ng/dL 0.75-1.54 Glucose 208.0 mg/dL High 75.0-110.0 HCT 39.8 % 37.0-51.0 HGB 12.0 Gm/dl 12.0-16.0 MCH 28.5 pg 26.0-32.0 MCHC 30.1 g/dL Low 31.0-36.0 MCV 94.8 Fl 80.0-97.0 MPV 10.1 fL High 6.0-10.0 PLT 326 K/ul 140-440 [place] 3.8 mmol/L 3.6-5.0 RBC 4.2 M/ul 4.2-6.3 RDW 13.7 % 11.5-14.5 Sodium 138.0 mmil/L 137.0-145.0 TSH 2.86 uIU/ml 0.50-6.00 WBC 6.9 K/ul 4.1-10.9 eGFR 93.4 Lipid Panel 12/29/2012 Chol/HDL Ratio 7.7 ratio Cholesterol 200.0 mg/dL High 50.0-199.0 HDL 26.0 mg/dL Low 45.0-86.0 LDL, Calculated 69.2 mg/dL 20.0-129.0 Triglycerides 524.0 mg/dL High 30.0-150.0 vLDL 104.8 ng/dL Laboratory test finding 11/29/2012 Genital Culture See Note 88 Gram Stain See Note 89 Laboratory test finding 09/19/2012 Anion Gap 12 mEq/L 8-16 BUN 11 mg/dL 5-23 BUN/Creat 15.7 ratio C-Reactive Protein,Quant 34.2 mg/L High 0.0-4.9 Calcium 9.3 mg/dL 8.5-10.1 Carbon Dioxide 27 mEq/L 18-29 Chloride 104 mmol/L 98-107 Creatinine 0.7 mg/dL 0.5-1.4 Glom Filtration Rate, Estimate >60 mL/min >60 Glucose 121 mg/dL High 76-115 If >60 mL/min >60 90 Potassium 3.7 mmol/L 3.5-5.1 Sodium 139 mmol/L 136-145 CBC/Manual Differential 09/19/2012 Anisocytosis 1+ Band% 1 % 0-8 Basophil% 1 % 0-2 Eosinophil% 2 % 0-5 Hematocrit 34.3 % Low 36.0-46.1 Hemoglobin 11.1 gm/dL Low 11.6-15.8 Lymph% 31 % 17-56 Mean Cell Volume 91.5 fl 80.9-99.0 Mean Corpuscular HGB 29.6 pg 25.9-32.7 Mean Corpuscular HGB Conc 32.4 g/dL 30.8-34.3 Mean Platelet Volume 12.0 fL 8.9-12.4 Monocyte% 5 % 0-10 Myelocyte% 1 % High -0 Neutrophils% 59 % 33-73 Platelet Count 257 K/uL 155-360 Platelet Estimate Normal Red Blood Count 3.75 M/uL Low 3.90-5.40 Red Cell Distri Width %CV 14.5 % High 11.7-14.4 Total Cells Counted 100 #CELLS White Blood Count 7.3 K/uL 3.1-10.7 Laboratory test finding 09/18/2012 Urine Bacteria Very Few None Seen Urine Bilirubin - Dipstick Negative Negative Urine Blood Small High Negative Urine Clarity Clear Clear Urine Color Yellow Yellow Urine Epithelial Cells Few None Seen /lpf Urine Glucose - Dipstick Negative mg/dL Negative Urine Ketone Negative mg/dL Negative Urine Leuk Esterase Negative Negative Urine Nitrite - Dipstick Negative Negative Urine PH 6.5 6.5-7.5 Urine Protein - Dipstick Negative mg/dL Negative Urine RBC 2-5 rbc/hpf 0-7 Urine Screen See Note 91 Urine Specific [place] 1.010 1.010-1.030 Urine Urobilinogen - Dipstick 0.2 E.U./dL 0.2-1.0 Urine WBC None Seen wbc/hpf 0-7 Laboratory test finding 09/15/2012 Anion Gap 13 mEq/L 8-16 BUN 8 mg/dL 5-23 BUN/Creat 10.0 ratio Calcium 8.7 mg/dL 8.5-10.1 Carbon Dioxide 24 mEq/L 18-29 Chloride 109 mmol/L High 98-107 Creatinine 0.8 mg/dL 0.5-1.4 Glom Filtration Rate, Estimate >60 mL/min >60 Glucose 143 mg/dL High 76-115 Hematocrit 33.4 % Low 36.0-46.1 Hemoglobin 10.7 gm/dL Low 11.6-15.8 If >60 mL/min >60 92 Mean Cell Volume 91.5 fl 80.9-99.0 Mean Corpuscular HGB 29.3 pg 25.9-32.7 Mean Corpuscular HGB Conc 32.0 g/dL 30.8-34.3 Mean Platelet Volume 11.7 fL 8.9-12.4 Platelet Count 238 K/uL 155-360 Potassium 4.3 mmol/L 3.5-5.1 Red Blood Count 3.65 M/uL Low 3.90-5.40 Red Cell Distri Width %CV 14.4 % 11.7-14.4 Sodium 142 mmol/L 136-145 White Blood Count 6.0 K/uL 3.1-10.7 Laboratory test finding 09/13/2012 Alb/Glob 0.9 ratio Albumin 3.7 g/dL 3.5-5.0 Alkaline Phosphatase 131 U/L 50-136 Anion Gap 14 mEq/L 8-16 BUN 27 mg/dL High 5-23 BUN/Creat 20.7 ratio Bilirubin,Total 0.6 mg/dL 0.2-1.2 Blood Culture Aerobic See Note 93 Blood Culture Anaerobic See Note 94 Calcium 9.6 mg/dL 8.5-10.1 Carbon Dioxide 27 mEq/L 18-29 Chloride 97 mmol/L Low 98-107 Creatinine 1.3 mg/dL 0.5-1.4 Culture If Indicated Comment See Note 95 Globulin 4.3 g/dL 1.9-4.3 Glom Filtration Rate, Estimate 46 mL/min >60 Glucose 136 mg/dL High 76-115 HCG Serum, Qualitative Negative If 55 mL/min >60 96 Lactic Acid 1.2 mmol/L 0.4-2.0 Potassium 4.0 mmol/L 3.5-5.1 SGPT/Alt 22 U/L Low 30-65 Sgot/Ast 16 U/L 16-40 Sodium 134 mmol/L Low 136-145 Total Protein 8.0 g/dL 6.3-8.0 Urine Bacteria Moderate None Seen High Urine Bilirubin - Dipstick Negative Negative Urine Blood Moderate High Negative Urine Clarity Clear Clear Urine Color Yellow Yellow Urine Culture See Note 97 Urine Epithelial Cells Few None Seen /lpf Urine Glucose - Dipstick Negative mg/dL Negative Urine Ketone Negative mg/dL Negative Urine Leuk Esterase Small High Negative Urine Nitrite - Dipstick Positive High Negative Urine PH 6.0 Low 6.5-7.5 Urine Protein - Dipstick 30 mg/dL High Negative Urine RBC 10-20 rbc/hpf High 0-7 Urine Screen See Note 98 Urine Specific [place] 1.025 1.010-1.030 Urine Uric Acid Crystals None Seen None Seen Urine Urobilinogen - Dipstick 0.2 E.U./dL 0.2-1.0 Urine WBC 10-20 wbc/hpf High 0-7 CBS W/Automated Diff 09/13/2012 Bas% 0.2 % 0.0-1.1 Baso # 0.02 K/uL 0.0-0.1 Eo% 1.3 % 0.0-6.6 Eos # 0.15 K/uL 0.0-0.5 Hematocrit 38.8 % 36.0-46.1 Hemoglobin 12.8 gm/dL 11.6-15.8 Lymph # 1.83 K/uL 0.8-3.4 Lymph % 16.1 % Low 17.0-46.1 Mean Cell Volume 89.4 fl 80.9-99.0 Mean Corpuscular HGB 29.5 pg 25.9-32.7 Mean Corpuscular HGB Conc 33.0 g/dL 30.8-34.3 Mean Platelet Volume 11.8 fL 8.9-12.4 [place] # 0.61 K/uL 0.3-0.9 [place] % 5.4 % 4.3-13.2 Neut# 8.78 K/uL High 1.0-7.0 Neut% 77.0 % High 40.4-72.8 Platelet Count 355 K/uL 155-360 Red Blood Count 4.34 M/uL 3.90-5.40 Red Cell Distri Width %CV 14.4 % 11.7-14.4 Red Cell Distri Width SD 45.0 fl 3-47 White Blood Count 11.4 K/uL High 3.1-10.7 Laboratory test finding 08/10/2012 Genital Culture See Note 99 Gram Stain See Note 100 Laboratory test finding 07/17/2012 Culture If Indicated Comment See Note 101 Urine Bacteria Moderate None Seen High Urine Bilirubin - Dipstick Negative Negative Urine Blood Small High Negative Urine Clarity Clear Clear Urine Color Yellow Yellow Urine Culture See Note 102 Urine Epithelial Cells Few None Seen /lpf Urine Glucose - Dipstick Negative mg/dL Negative Urine Ketone Trace mg/dL High Negative Urine Leuk Esterase Large High Negative Urine Mucus Moderate None Seen Urine Nitrite - Dipstick Positive High Negative Urine PH 7.5 6.5-7.5 Urine Protein - Dipstick 100 mg/dL High Negative Urine RBC 2-5 rbc/hpf 0-7 Urine Screen See Note 103 Urine Specific [place] 1.020 1.010-1.030 Urine Trip Phos Crystals Moderate None Seen Urine Urobilinogen - Dipstick 0.2 E.U./dL 0.2-1.0 Urine WBC 20-30 wbc/hpf High 0-7 1 SCHEDULE 1 WEEK PRIOR TO NEXT VISIT 2 Updated reference range on new analyzer 3 Updated reference range on new analyzer 4 Concerning GFR Guidelines for Americans: Normal function or mild renal disease, if clinically at risk: >/=60 mL/min Moderately decreased: 30-59 Severely decreased: 15-29 Renal failure: <15 5 Concerning GFR Guidelines: Normal function or mild renal disease, if clinically at risk: >/=60 mL/min Moderately decreased: 30-59 Severely decreased: 15-29 Renal failure: <15 Glomerular Filtration Rate (GFR) is estimated based on the MDRD equation, which assumes a steady state for creatinine as recommended by the National Kidney Disease Education Program in conjunction with the National Institutes of Health and the National Kidney Foundation. Clinical conditions in which it may be necessary to measure GFR by using clearance methods include extremes of age and body size, severe malnutrition or obesity, diseases of skeletal muscle, paraplegia or quadriplegia, vegetarian diet, rapidly changing kidney function, and calculation of the dose of potentially toxic drugs that are excreted by the kidneys. 6 Updated reference range on new analyzer 7 Per NCEP ATP III Guidelines: Results lower than 40 mg/dL are suggestive of increased risk for coronary artery disease. Results > or=to 60 mg/dL are considered a negative risk factor. 8 Per NCEP ATP III Guidelines: Normal Population <130 Patients with medical conditions: CHD/DM Optimal: <100 Borderline high: 130-159 High: 160-189 Very high: >189 9 S/CO Ratio >/=1.0 is REACTIVE. S/CO <5.0 is Low Reactive. S/CO >/= 5.0 is High Reactive. Effective Oct 08, 2016 all anti-HCV reactive samples are sent for quantitative PCR confirmation. 10 Microbiology results SOURCE Catheter COLONY COUNT >100,000 CFU/ML PRELIMINARY RESULT Gram Negative Giuliano. ID & Sensitivity to Follow. 03/01/2017 4:25 PM FINAL RESULT >100,000 CFU/ML Klebsiella pneumoniae (Isolate 1) FINAL RESULT 50,000 CFU/ML Proteus penneri (Isolate 2) Sensitivity Analysis Isolate 1 Isolate 2 --------- --------- AMIKACIN <=16 S <=16 S AMOXICILLIN/CLAVULANATE <=8/4 S <=8/4 S AMPICILLIN >16 R >16 R AMPICILLIN/SULBACTAM <=8/4 S <=8/4 S CEFAZOLIN <=2 S CEFEPIME <=8 S <=8 S CEFOTAXIME <=2 S <=2 S CEFTRIAXONE <=1 S <=1 S CEFUROXIME <=4 S >16 R CIPROFLOXACIN <=1 S <=1 S ERTAPENEM <=0.5 S <=0.5 S GENTAMYCIN <=2 S 4 S IMIPENEM <=1 S 4 R LEVOFLOXACIN <=2 S <=2 S NITROFURANTOIN <=32 S >64 R PIPERACILLIN/TAZOBACTAM <=16 S <=16 S TETRACYCLINE <=4 S 8 R* TOBRAMYCIN <=4 S <=4 S TRIMETHOPRIM/SULFAMETHOXAZ <=2/38 S <=2/38 S S=Sensitive;I=Indeterminate;R=Resistant 11 E11.9 12 E11.9,E03.9,K76.0,E78.2,N95.9 13 Vitamin D deficiency has been defined by the [place] [employer] and an Endocrine Society practice guideline as a level of serum 25-OH vitamin D less than 20 ng/mL (1,2). The Endocrine Society went on to further define vitamin D insufficiency as a level between 21 and 29 ng/mL (2). 1. IOM ([place] [employer]). 2010. Dietary reference intakes for calcium and D. [place]: The National Academies Press. 2. Myron BUCKNER, Jamari ARMAS, Luis Antonio RAY, et al. Evaluation, treatment, and prevention of vitamin D deficiency: an Endocrine Society clinical practice guideline. JCEM. 2010; 96(7):1911-30. Performed at: RN - [facility] [address] [id number] Research Recruiter: Susana Sheth MD, Phone: [phone] 14 Reference Guidelines*: Desirable: ........... < 200 mg/dL Borderline High: ..... 200-239 mg/dL High: ................ >=240 mg/dL * The National Cholesterol Education Program (NCEP) 15 Reference Guidelines*: Normal: ............. < 150 mg/dL Borderline High: .... 150-199 mg/dL High: ............... 200-499 mg/dL Very High: .......... > 500 mg/dL * Source: National Cholesterol Education Program (NCEP) 16 Reference Guidelines*: Low HDL: ..... < 40 mg/dL Normal: ..... 40-60 mg/dL Desirable: ... > 60 mg/dL *The National Cholesterol Education Program(NCEP) 17 (LDL CANNOT BE CALCULATED FOR TRIGS >400 mg/dL) 18 Values below the stated reference ranges of AST and ALT can be seen in normal populations. Clinical correlation is suggested. 19 Note: Persistent reduction for 3 months or more in an eGFR <60 mL/min/1.73 m2 defines CKD. Patients with eGFR values >/=60 mL/min/1.73 m2 may also have CKD if evidence of persistent proteinuria is present. The original MDRD equation for estimated GFR is not valid for patients less than 18 years of age. Additional information may be found at www.[email or web address]. 20 Elevated levels of HbA1c suggest the need for more aggressive treatment of glycemia. The [place] Diabetes Association recommends that a primary goal of therapy should be a HbA1c of <7% and that physicians should re-evaluate the treatment regimen in patients with HbA1c values consistently >8%. 21 N989 22 GRAM STAIN INDICATES NORMAL GENITAL STACY 23 NO WHITE BLOOD CELLS 24 FEW EPITHELIAL CELLS 25 UTI 26 Note: Persistent reduction for 3 months or more in an eGFR <60 mL/min/1.73 m2 defines CKD. Patients with eGFR values >/=60 mL/min/1.73 m2 may also have CKD if evidence of persistent proteinuria is present. The original MDRD equation for estimated GFR is not valid for patients less than 18 years of age. Additional information may be found at [email or web address]. 27 ABD PAIN 28 URINE, CLEAN CATCH 29 CULTURE TO FOLLOW 30 URINE, CLEAN CATCH 31 UTI 32 MIXED URETHRAL STACY 33 > 100,000 CFU/mL SPECIMEN IS A MIX OF GRAM NEGATIVE AND GRAM POSITIVE ORGANISMS. UNABLE TO DETERMINE WHICH ORGANISMS ARE FROM THE URINARY TRACT OR THE RESULT OF SKIN VAGINAL PERIANAL CONTAMINATION DURING COLLECTION. SUGGEST REPEAT SPECIMEN IF CLINICALLY INDICATED. 34 ABD PAIN 35 Note: Persistent reduction for 3 months or more in an eGFR <60 mL/min/1.73 m2 defines CKD. Patients with eGFR values >/=60 mL/min/1.73 m2 may also have CKD if evidence of persistent proteinuria is present. The original MDRD equation for estimated GFR is not valid for patients less than 18 years of age. Additional information may be found at [email or web address]. 36 R30.0 N39.0 37 CULTURE TO FOLLOW 38 PROTEUS VULGARIS 39 > 100,000 CFU/mL 40 ENTEROCOCCUS FAECALIS 41 > 100,000 CFU/mL 42 Z01.818 43 MORG. MORGANII SBB MORGANII 44 > 100,000 CFU/mL 45 Note: Persistent reduction for 3 months or more in an eGFR <60 mL/min/1.73 m2 defines CKD. Patients with eGFR values >/=60 mL/min/1.73 m2 may also have CKD if evidence of persistent proteinuria is present. The original MDRD equation for estimated GFR is not valid for patients less than 18 years of age. Additional information may be found at [email or web address]. 46 THERAPEUTIC INR RANGE: 2.0 - 3.0 DVT, Pulmonary embolus, prophylaxis against venous thrombosis or systemic embolization in high risk patients. 2.5 - 3.5 Mechanical heart valves 47 E11.9 E03.9 K76.0 E78.2 N95.9 48 Vitamin D deficiency has been defined by the [place] [employer] and an Endocrine Society practice guideline as a level of serum 25-OH vitamin D less than 20 ng/mL (1,2). The Endocrine Society went on to further define vitamin D insufficiency as a level between 21 and 29 ng/mL (2). 1. IOM ([place] [employer]). 2010. Dietary reference intakes for calcium and D. [place]: The National Academies Press. 2. Myron MF, Jamari ARMAS, Luis Antonio RAY, et al. Evaluation, treatment, and prevention of vitamin D deficiency: an Endocrine Society clinical practice guideline. JCEM. 2010; 96(7):1911-30. Performed at: RN - [facility] [address] [id number] Research Recruiter: Susana Sheth MD, Phone: [phone] Reference Guidelines*: Desirable: ........... < 200 mg/dL Borderline High: ..... 200-239 mg/dL High: ................ >=240 mg/dL * The National Cholesterol Education Program (NCEP) 50 Reference Guidelines*: Normal: ............. < 150 mg/dL Borderline High: .... 150-199 mg/dL High: ............... 200-499 mg/dL Very High: .......... > 500 mg/dL * Source: National Cholesterol Education Program (NCEP) 51 Reference Guidelines*: Low HDL: ..... < 40 mg/dL Normal: ..... 40-60 mg/dL Desirable: ... > 60 mg/dL *The National Cholesterol Education Program(NCEP) 52 (LDL CANNOT BE CALCULATED FOR TRIGS >400 mg/dL) 53 Elevated levels of HbA1c suggest the need for more aggressive treatment of glycemia. The [place] Diabetes Association recommends that a primary goal of therapy should be a HbA1c of <7% and that physicians should re-evaluate the treatment regimen in patients with HbA1c values consistently >8%. 54 Note: Persistent reduction for 3 months or more in an eGFR <60 mL/min/1.73 m2 defines CKD. Patients with eGFR values >/=60 mL/min/1.73 m2 may also have CKD if evidence of persistent proteinuria is present. The original MDRD equation for estimated GFR is not valid for patients less than 18 years of age. Additional information may be found at www.kdoqi.org. 55 Values below the stated reference ranges of AST and ALT can be seen in normal populations. Clinical correlation is suggested. 56 Elevated levels of HbA1c suggest the need for more aggressive treatment of glycemia. The [place] Diabetes Association recommends that a primary goal of therapy should be a HbA1c of <7% and that physicians should re-evaluate the treatment regimen in patients with HbA1c values consistently >8%. 57 Reference Guidelines*: Desirable: ........... < 200 mg/dL Borderline High: ..... 200-239 mg/dL High: ................ >=240 mg/dL * The National Cholesterol Education Program (NCEP) 58 Reference Guidelines*: Normal: ............. < 150 mg/dL Borderline High: .... 150-199 mg/dL High: ............... 200-499 mg/dL Very High: .......... > 500 mg/dL * Source: National Cholesterol Education Program (NCEP) 59 Reference Guidelines*: Low HDL: ..... < 40 mg/dL Normal: ..... 40-60 mg/dL Desirable: ... > 60 mg/dL *The National Cholesterol Education Program(NCEP) 60 Test not performed (LDL CANNOT BE CALCULATED FOR TRIGS >400 mg/dL) 61 Note: Persistent reduction for 3 months or more in an eGFR <60 mL/min/1.73 m2 defines CKD. Patients with eGFR values >/=60 mL/min/1.73 m2 may also have CKD if evidence of persistent proteinuria is present. The original MDRD equation for estimated GFR is not valid for patients less than 18 years of age. Additional information may be found at www.kdoqi.org. 62 Values below the stated reference ranges of AST and ALT can be seen in normal populations. Clinical correlation is suggested. 63 Vitamin D deficiency has been defined by the [place] [employer] and an Endocrine Society practice guideline as a level of serum 25-OH vitamin D less than 20 ng/mL (1,2). The Endocrine Society went on to further define vitamin D insufficiency as a level between 21 and 29 ng/mL (2). 1. IOM ([place] [employer]). 2010. Dietary reference intakes for calcium and D. [place]: The National Academies Press. 2. Myron MF, Jamari NC, Luis Antonio RAY, et al. Evaluation, treatment, and prevention of vitamin D deficiency: an Endocrine Society clinical practice guideline. JCEM. 2010; 96(7):1911-30. Performed at: RN - [facility] [address] [id number] Research Recruiter: Susana Sheth MD, Phone: [phone] P [phone] CC: BRUNO MCGINNIS MD FAX TO 65 Unless otherwise specified, testing performed by [facility] [address] [place] [address] 66 [phone] CC: BRUNO MCGINNIS MD [facility] FAX TO 67 Concerning GFR Guidelines: Normal function or mild renal disease, if clinically at risk: >/=60 mL/min Moderately decreased: 30-59 Severely decreased: 15-29 Renal failure: <15 Glomerular Filtration Rate (GFR) is estimated based on the MDRD equation, which assumes a steady state for creatinine as recommended by the National Kidney Disease Education Program in conjunction with the National Institutes of Health and the National Kidney Foundation. Clinical conditions in which it may be necessary to measure GFR by using clearance methods include extremes of age and body size, severe malnutrition or obesity, diseases of skeletal muscle, paraplegia or quadriplegia, vegetarian diet, rapidly changing kidney function, and calculation of the dose of potentially toxic drugs that are excreted by the kidneys. 68 Concerning GFR Guidelines for Americans: Normal function or mild renal disease, if clinically at risk: >/=60 mL/min Moderately decreased: 30-59 Severely decreased: 15-29 Renal failure: <15 69 SCHEDULE 1 WEEK PRIOR TO NEXT VISIT 70 Concerning GFR Guidelines: Normal function or mild renal disease, if clinically at risk: >/=60 mL/min Moderately decreased: 30-59 Severely decreased: 15-29 Renal failure: <15 Glomerular Filtration Rate (GFR) is estimated based on the MDRD equation, which assumes a steady state for creatinine as recommended by the National Kidney Disease Education Program in conjunction with the National Institutes of Health and the National Kidney Foundation. Clinical conditions in which it may be necessary to measure GFR by using clearance methods include extremes of age and body size, severe malnutrition or obesity, diseases of skeletal muscle, paraplegia or quadriplegia, vegetarian diet, rapidly changing kidney function, and calculation of the dose of potentially toxic drugs that are excreted by the kidneys. 71 Concerning GFR Guidelines for Americans: Normal function or mild renal disease, if clinically at risk: >/=60 mL/min Moderately decreased: 30-59 Severely decreased: 15-29 Renal failure: <15 72 Organism 1 ! MIXED URETHRAL STACY Quantity ! > 100,000 CFU/mL SPECIMEN IS A MIX OF GRAM NEGATIVE AND GRAM POSITIVE ORGANISMS. UNABLE TO DETERMINE WHICH ORGANISMS ARE FROM THE URINARY TRACT OR THE RESULT OF SKIN/VAGINAL/PERIANAL CONTAMINATION DURING COLLECTION. SUGGEST REPEAT SPECIMEN IF CLINICALLY INDICATED. 73 Values below the stated reference ranges of AST and ALT can be seen in normal populations. Clinical correlation is suggested. 74 CULTURE TO FOLLOW 75 07/02/14 LAB.DWM Deleted by [facility] 76 Note: Persistent reduction for 3 months or more in an eGFR <60 mL/min/1.73 m2 defines CKD. Patients with eGFR values >/=60 mL/min/1.73 m2 may also have CKD if evidence of persistent proteinuria is present. The original MDRD equation for estimated GFR is not valid for patients less than 18 years of age. Additional information may be found at www.[email or web address]. 77 PT HERE ON 06/25/14 SCHEDULE 1 WEEK PRIOR TO NEXT VISIT 78 Concerning GFR Guidelines: Normal function or mild renal disease, if clinically at risk: >/=60 mL/min Moderately decreased: 30-59 Severely decreased: 15-29 Renal failure: <15 Glomerular Filtration Rate (GFR) is estimated based on the MDRD equation, which assumes a steady state for creatinine as recommended by the National Kidney Disease Education Program in conjunction with the National Institutes of Health and the National Kidney Foundation. Clinical conditions in which it may be necessary to measure GFR by using clearance methods include extremes of age and body size, severe malnutrition or obesity, diseases of skeletal muscle, paraplegia or quadriplegia, vegetarian diet, rapidly changing kidney function, and calculation of the dose of potentially toxic drugs that are excreted by the kidneys. 79 Concerning GFR Guidelines for Americans: Normal function or mild renal disease, if clinically at risk: >/=60 mL/min Moderately decreased: 30-59 Severely decreased: 15-29 Renal failure: <15 80 Per NCEP ATP III Guidelines: Results lower than 40 mg/dL are suggestive of increased risk for coronary artery disease. Results > or=to 60 mg/dL are considered a negative risk factor. 81 Per NCEP ATP III Guidelines: Normal population: <130 Patients with medical conditions: CHD/DM Optimal range: <100 Borderline high: 130-159 High: 160-189 Very high: >189 82 OPERATION/PROCEDURE Colonoscopy with polypectomy DIAGNOSIS: "COLON POLYP AT 50 CM., POLYPECTOMY": HYPERPLASTIC POLYP. George GROSS "POLYP 50 CM.". The specimen is received in an appropriately labeled container. This contains one rounded chilel colored piece of soft tissue measuring 0.3 x 0.3 x 0.1 cm.; filtered and submitted in toto within a single cassette. George MICROSCOPIC Sections show colonic mucosa lined by an increased number of goblet cells. The glands have a serrated, saw tooth appearance. The nuclei are bland, and basal. PRE OPERATIVE DIAGNOSIS Colon screening REVIEW CODE CODE: I Signed Electronically signed TANISHA LAND MD 04/30/14 1300 83 This high-risk HPV test detects thirteen high-risk types (16/18/31/33/35/39/45/51/52/56/58/59/68) without differentiation. The date recorded on the requisition indicates the sample(s) received were greater than 72 hours old upon arrival in our laboratory. Performed at: - [facility] [address] [id number] Research Recruiter: Susana Sheth MD, Phone: [phone] 84 Note: Persistent reduction for 3 months or more in an eGFR <60 mL/min/ 1.73 m2 defines CKD. Patients with eGFR values >/=60 mL/min/1.73 m2 may also have CKD if evidence of persistent proteinuria is present. The original MDRD equation for estimated GFR is not valid for patients less than 18 years of age. Additional information may be found at www.kdoqi.org. 85 SAMPLE FOR ADD ON IS GREATER THAN 72 HRS,CALLED KALI Naranjo AT DR TRINIDAD'S OFFICE 11:07AM 02/26/13 86 02/21/13 LAB.CKS Deleted by [employer] [facility] 87 Performed at: RN - [facility] [address] [id number] Research Recruiter: Susana Sheth MD, Phone: [phone] GENITAL STACY 89 GRAM STAIN ! GRAM STAIN INDICATES NORMAL GENITAL STACY ! MODERATE GR POS. BACILLI SUGGESTIVE OF LACTOBACILLUS ! SP. 90 Note: Persistent reduction for 3 months or more in an eGFR <60 mL/min/ 1.73 m2 defines CKD. Patients with eGFR values >/=60 mL/min/1.73 m2 may also have CKD if evidence of persistent proteinuria is present. The original MDRD equation for estimated GFR is not valid for patients less than 18 years of age. Additional information may be found at [email or web address]. 91 09/18/12 LAB.EMM1 Deleted by [facility] 92 Note: Persistent reduction for 3 months or more in an eGFR <60 mL/min/ 1.73 m2 defines CKD. Patients with eGFR values >/=60 mL/min/1.73 m2 may also have CKD if evidence of persistent proteinuria is present. The original MDRD equation for estimated GFR is not valid for patients less than 18 years of age. Additional information may be found at [email or web address]. 93 NO GROWTH: FINAL REPORT 94 NO GROWTH: FINAL REPORT 95 CULTURE TO FOLLOW 96 Note: Persistent reduction for 3 months or more in an eGFR <60 mL/min/ 1.73 m2 defines CKD. Patients with eGFR values >/=60 mL/min/1.73 m2 may also have CKD if evidence of persistent proteinuria is present. The original MDRD equation for estimated GFR is not valid for patients less than 18 years of age. Additional information may be found at [email or web address]. 97 COLONY COUNT ! >100,000 CFU/ml Organism 1 ! PSEUDOMONAS AERUGINOSA QUANTITY ! MANY NOTE: ! IF ANTIPSEUDOMONAL PENICILLINS ARE PRESCRIBED, ! AN AMINOGLYCOSIDE SHOULD BE GIVEN IN ADDITION. PSEUDOMONAS AERUGINOSA Target Route Dose M.I.C. RX AB COST ------ ----- -------- ------ -- ------ PIPERACILLIN/ TAZOBACTAM <=4 S CEFTAZIDIME <=1 S LEVOFLOXACIN 0.25 S IMIPENEM 2 S GENTAMICIN &lt ;=1 S TOBRAMYCIN <=1 S 98 09/13/12 LAB.EMM1 Deleted by [facility] 99 GENITAL STACY 100 GRAM STAIN ! GRAM STAIN INDICATES NORMAL GENITAL STACY ! FEW GR POS. BACILLI SUGGESTIVE OF LACTOBACILLUS SP. 101 CULTURE TO FOLLOW 102 COLONY COUNT ! >100,000 CFU/ml Organism 1 ! PSEUDOMONAS AERUGINOSA QUANTITY ! MANY NOTE: ! IF ANTIPSEUDOMONAL PENICILLINS ARE PRESCRIBED, ! AN AMINOGLYCOSIDE SHOULD BE GIVEN IN ADDITION. Organism 2 ! CITROBACTER SPECIES QUANTITY ! MANY ORGANISM NONVIABLE FOR SENSITIVITY PSEUDOMONAS AERUGINOSA Target Route Dose M.I.C. RX AB COST ------ ----- -------- ------ -- ------ PIPERACILLIN/TAZOBACTAM 8 S CEFTAZIDIME 4 S LEVOFLOXACIN 0.5 S IMIPENEM 2 S GENTAMICIN <=1 S TOBRAMYCIN <=1 S 103 07/17/12 LAB.EMM1 Deleted by [facility] Procedures Date CPT Code Description Status Comment 04/20/2016 30832 Electrocardiogram Complete Completed 12/23/2015 39624 Tympanometry Completed 12/16/2015 40467 Measure Blood Oxygen Level Completed Single Determination 09/25/2014 62020 Visual Screening Test Completed 04/26/2014 Colonoscopy Completed Lab Order: 04/26/14 - Lab hyperplastic polyp, Ace NEXT 202401/04/2014 59806 Electrocardiogram Complete Completed 74484 Colonoscopy Flexible Completed Diagnostic Encounters Type Date Location Provider CPT E/M Dx Office Visit 11/01/2016 11:15[place] [address] E11.9 G82.50 K59.00 N21.0 E03.9 K76.0 E78.2 N95.9 N31.1 G90.4 M54.2 F41.9 S14.125S Office Visit 06/23/2016 10:30[place] [address] N21.0 E11.9 E03.9 K76.0 E78.2 N95.9 N31.1 G90.4 M54.2 K59.00 F41.9 G82.50 S14.125S Office Visit 03/09/2016 1:00p [place] [address] Z01.818 N21.0 E11.9 E03.9 K76.0 E78.2 N95.9 N31.1 G90.4 M54.2 K59.00 F41.9 G82.50 S14.125S Office Visit 03/02/2016 10:00a [place] [address] E11.9 E03.9 K76.0 E78.2 N95.9 N31.1 G90.4 M54.2 K59.00 F41.9 G82.50 S14.125S Office Visit 12/23/2015 9:00[place] [address] H68.003 H65.02 Office Visit 12/16/2015 10:30a [facility] [place] Wolfe, [place] [address] H91.93 Office Visit 10/28/2015 9:45a [place] [address] E11.9 E03.9 K76.0 E78.2 N95.9 G82.53 N31.1 G90.4 M54.2 K59.00 F41.9 Office Visit 06/17/2015 3:00p [place] [address] E11.9 G82.50 N31.1 G90.4 E03.9 E78.2 M54.2 K59.00 F41.9 N95.9 S14.125S K76.0 Office Visit 05/19/2015 11:00a [place] [address] K76.0 Office Visit 02/11/2015 11:15a [place] [address] E11.9 G82.50 N31.1 G90.4 E03.9 E78.2 M54.2 K59.00 F41.9 N95.9 S14.125S Office Visit 12/19/2014 10:30a [place] [address] Z01.818 N20.0 N21.0 G82.50 N31.9 G90.4 E11.9 E03.9 E78.2 K59.00 F41.9 S14.126D N95.9 Office Visit 10/11/2014 10:15a [place] [address] 250.00 592.0 344.00 596.54 337.3 244.9 272.2 723.1 564.00 300.00 952.08 627.9 719.42 Office Visit 09/25/2014 1:00p [place] [address] 372.00 373.12 Office Visit 07/11/2014 11:00a [place] [address] 596.59 594.1 599.0 995.91 250.00 112.0 Office Visit 02/20/2014 10:15a [place] [address] 344.00 244.9 596.54 723.1 564.00 300.00 790.29 337.3 272.2 952.08 627.9 Plan of Care Future Appointment(s):04/04/2017 10:45 am - Radha Acosta MD at [facility]2017 - Radha Acosta MDE11.9 Type 2 diabetes mellitus without complicationsNew Medication:Metformin HCL ER 500 mgComments:diabetes not adequately controlled with diet.Glyco at 7.5, glucose at 205, fs range 130 - 150Reviewedoptions, recommend pt start metformin ER 500mgAdvised how medication works to control glucose.Cautioned side such gi upset, nausea, diarrhea, and if can deal with it usually those sxs go away. Also discussed renal side, metabolic acidosis, will follow renal numbers. Discussed to be careful about this med with any xray study that has dye, to hold this med for that. Check FS daily before breakfast or dinner, goal 80 - 120.Reviewed signs and symptoms of low and high sugars and how to treat. Annual eyeexam recommendedFollow up:next visit in 1mo fu new diabetes meds, bring fs reading written out schedule mammo see wciwuvU01.2 Mixed hyperlipidemiaComments:high cholreviewed atp-IV guidelines , despite diabets, she is considered low risk so no statin is recommended at this time. Per atp IV suggests an <5% cardiovascular risk, meaning <5 out of 100 people with your risk factors will have a heart attack or stroke in the next 10 years. This is considered low risk. Note, Dr Martinez started fenofibrate due to high triglycerides, will continue for now, asthey improve may stop that medicine, should improve with metformin treatment. Recommend: Low fat ( under 30gm), low chol diet ( under 300mg per day chol)focus on lean meat, nonfat 1% dairy, increased veg and fruit, whole grains consume healthy omega-3 fats with each meal, avoiding transfats. weight lossexercise recommended, she states she doesn't exercise. Since this is considered low risk, no aspirin is recommended at this time. Reviewed signs and symptoms of cardiovascular disease. Recheck labs [id number] Hypothyroidism, unspecifiedComments:hypothyroid--TSH/ labs are stable. Continue replacement medication. Reviewed side effects. Please call for concerns about over treatment or under treatment, with symptoms such as fatigue, change in bowel habits/skin/hair/nails, temperature intolerance , weight changes, or other concerns.G82.50 Quadriplegia, unspecifiedNew Xrays: Mammogram, Screening Bilateral MammogramComments:Care with Dr Fajardo, phys med and rehab smith syrN31.1 Reflex neuropathic bladder, not elsewhere classifiedComments:S/P UROSTOMY. CONTINUE CARE WITH UROLOGY pt transferring care to Dr Abraham.K76.0 Fatty (change of) liver, not elsewhere classifiedComments:MILDLY ENLARGED LIVER DUE TO FATTY LIVER BY CAT SCAN MAY 2015. RECOMMEND LOW FAT/SATURATED FAT DIET, WEIGHT LOSS. RECENT LABS REVIEWED WITH PATIENT. LFT'S ARE NORMAL.G90.4 Autonomic dysreflexiaComments:Care with Dr Fajardo physical medicine and dcszeE53.2 CervicalgiaComments:ARTHRITIS OF THE CERVICAL SPINE. MAY USE MOTRIN 600MG 1 PO Q [address] Care with Dr Fajardo as well, monitor labsFollow up:Followup:.Z23 Encounter for immunizationComments:pneumovax 23 today due to higher risk addendum, pt asks to have this vaccine in her le/thigh/buttock, checked with nursing, that route is not recommended due to risks for striking neurovascular bundle. Pt declines vaccine at this time. LMCZ12.31 Encntr screen mammogram for malignant neoplasm of breastNew Xrays:Mammogram, Screening Bilateral MammogramComments:has not had mammo, discussed, she would likely treat if found, so will order, she has to have this study laying down due to her disability we will try to call and see what the options are for mammo screening for herS14.125S Central cord syndrome at C5, sequelaComments:QUADRIPLEGIA IN WHEELCHAIR SECONDARY TO CERVICAL SPINAL CORD INJURY. CONTINUE CARE WITH Dr [facility].M81.0 Age-related osteoporosis w/o current pathological fractureComments:pt with osteoporosis managed by Dr Fajardo, but had issues with taking weekly med due to timing, advised there is a once a month med, needs to be upright for 60min, she has issues with shower, recommend skip the shower. I don't have dexa, if you want me to prescribe then send me dexa report will review and decide from there
== END 2017-03-24 14:42 | disposition left against medical advice (07) ==
LOC: UCCORT 12:10
DX: H57.8 Other specified disorders of eye and adnexa (principal); Z53.21 Procedure and treatment not carried out due to patient leaving prior to being seen by health care provider

== ENCOUNTER 2017-03-24 16:34 | Emergency (ER) | payer MEDICAID, MEDICARE, OTHER ==
[2017-03-24 18:05] VITALS: BP 152/79
--- NOTE | 2017-03-24 18:17 | UC ---
Eye Complaint HPI - HPI Summary HPI Summary: 56 y/o female presents to the urgent care c/o B/L eyes redness w/ yellowish eye drainage and crusting for the past week . Pt has been using artificial tears w/o any relief of symptoms. Pt states she woke up this morning w/ her eyes sticking. Pt wears glasses. Pt denies fever, visual disturbance, eye pain, photophobia, dizziness, fatigue, SOB, chest pain, abdominal pain, N/V/D. Pt states she has HX of Spinal cord injury for many years and she has a urostomy. She states her HR rate is usually low. She also states she has an appt w/ her Urologist in 2 days for a f/u. - History of Current Complaint Chief Complaint: UCEye Stated Complaint: BILAT EYE COMPLAINT Time Seen by Provider: 03/24/17 18:14 Hx Obtained From: Patient Hx Last Menstrual Period: hysterectomy Onset/Duration: Gradual Onset, Lasting Weeks - 1 week, Worse Since - this morning Timing: Constant Severity Initially: Mild Severity Currently: Moderate Pain Intensity: 3 Pain Scale Used: 0-10 Numeric Location of Injury: Conjunctiva Character: Foreign Body Sensation Aggravating Factor(s): Nothing Alleviating Factor(s): Eye Drops Associated Signs And Symptoms: Positive: Drainage (Purulent) - B/L. Negative: Photophobia, Fever, Swelling - Risk Factors Penetrating Injury Risk Factor: Negative Globe Rupture Risk Factors: Negative Acute Glaucoma Risk Factors: Negative Optic Artery Occlusion Risk Factors: Negative - Allergies/Home Medications Allergies/Adverse Reactions: Allergies Allergy/AdvReac Type Severity Reaction Status Date / Time MS Latex [Latex] Allergy Severe hives/swell Verified 03/24/17 18:05 ing MS Sulfa Drugs [Sulfa Drugs] Allergy Severe Swelling Verified 03/24/17 18:05 MS Shellfish Allergy Allergy Intermediate Diarrhea Verified 03/24/17 18:05 [Shellfish Allergy] MS Erythromycin AdvReac Intermediate GI ,CRAMPS Verified 03/24/17 18:05 [Erythromycin] MS Ciprofloxacin [From Cipro] AdvReac INCREASES Verified 03/24/17 18:05 THE EFFECT OF TIZANIDINE NEGRAM Allergy Unknown Unknown Uncoded 03/24/17 18:05 Reaction Details IVP DYE Allergy Sneezing Uncoded 03/24/17 18:05 Home Medications: Home Medications Fenofibrate 150 mg PO DAILY 03/24/17 [History Confirmed 03/24/17] Levothyroxine TAB* [Synthroid 75 MCG TAB*] 75 mcg PO 0800 03/24/17 [History Confirmed 03/24/17] PMH/Surg Hx/FS Hx/Imm Hx Previously Healthy: Yes Endocrine History: Hypothyroidism GI/ History: Renal Disease Other GI/ History: Costipation Other Neurological History: Spianl cord injury, spasticity Other History Of: Negative For: HIV, Hepatitis B, Hepatitis C, Anticoagulant Therapy - Surgical History Surgical History: Yes Surgery Procedure, Year, and Place: hysterectomy. colostomy. Urostomy - Family History Known Family History: Positive: Hypertension Negative: Cardiac Disease, Diabetes - Social History Occupation: Disabled Lives: With Family Alcohol Use: Occasionally Substance Use Type: None Smoking Status (MU): Never Smoked Tobacco - Immunization History Most Recent Influenza Vaccination: 2012 Vaccination Up to Date: Yes Review of Systems Constitutional: Negative Skin: Negative Eyes: Drainage - purulent drainage, Eye Redness - B/L ENT: Negative Respiratory: Negative Cardiovascular: Negative Gastrointestinal: Negative Genitourinary: Negative Motor: Negative Neurovascular: Negative Musculoskeletal: Negative Neurological: Negative Psychological: Negative Is Patient Immunocompromised?: No All Other Systems Reviewed And Are Negative: Yes Physical Exam Triage Information Reviewed: Yes Vital Signs: Initial Vital Signs Temp 97.8 F 03/24/17 18:00 Pulse 50 03/24/17 18:00 Resp 14 03/24/17 18:00 BP 152/79 03/24/17 18:00 Pulse Ox 99 03/24/17 18:00 - Additional Comments Vital Signs Reviewed: Yes General: Well appearing, well nourished female sitting in her wheel chair w/o any apparent pain distress. Eyes: Positive: B/L Conjunctiva Inflamed and w/ yellowish purulent eye discharge , yellowish crusting on eyelashes observed.Visual fritz: full to confrontation. PERRLA, EOMI intact w/out limitation or complaint of pain. No ciliary flush. No chemosis, No photophobia. Normal fundoscopic exam; no proptosis, mild exophthalmos, no nystagmus. ENT: Positive: Normal ENT inspection, Hearing grossly normal, Pharynx normal, Nasal congestion, Nasal drainage - clear, TMs normal - B/L external ear canal clear , TM's WNL. Negative: Tonsillar swelling, Tonsillar exudate Neck: Positive: Supple, Nontender, No Lymphadenopathy Respiratory: Positive: Chest nontender, Lungs clear, Normal breath sounds, No respiratory distress Cardiovascular: Positive: RRR, No Murmur, Pulses Normal, Brisk Capillary Refill Abdomen Description: Positive: Nontender, No Organomegaly, Soft. Negative: CVA Tenderness (R), CVA Tenderness (L). Positive urostony bag on the RT lateral side of abdomen w/o any infection observed. Bowel Sounds: Positive: Present Musculoskeletal: Positive: Strength Intact, ROM Intact, No Edema Neurological Exam: Normal Psychological Exam: Normal Skin Exam: Normal Eye Complaint Course/Dx - Course Course Of Treatment: 56 y/o female presents to the urgent care c/o B/L eyes redness w/ yellowish eye drainage and crusting for the past week . Pt has been using artificial tears w/o any relief of symptoms. Pt states she woke up this morning w/ her eyes sticking. Pt wears glasses. Pt denies fever, visual disturbance, eye pain,photophobia, dizziness, fatigue, SOB, chest pain, abdominal pain, N/V/D. Pt states she has HX of Spinal cord injury for many years and she has a urostomy. She states her HR rate is usually low. She also states she has an appt w/ her Urologist in 2 days for a f/u. Hx obtained.B/L PERRLA, EOMI, fundi grossly normal, B/L conjunctiva injected with yellowish eye discharge. No tenderness on palpation, . Pt Rx Ciprofloxacin ophthalmic drops for his bacterial conjunctivitis. Pt instructed how to apply medication and if symptoms do not improve, advised to return to the urgent care or f/u with Opthalmologist DR Bocanegra for further evaluation and treatment. Pt's BP is elevatedand HR low today, however Pt's states it is ususallylow. Pt strongly advised advised to decrease salt in diet, monitor BP and f/u with PCP in 1-2 days for further management. Pt understood and agreed.Pt left the clinic hemodynamycally states, A&OX3. - Differential Dx/Diagnosis Differential Diagnosis/HQI/PQRI: Conjunctivitis, Keratitis, Periorbital Cellulitis, Orbital Cellulitis, Other - stye, Provider Diagnoses: 1- Acute bilateral eye conjunctivitis. 2-Elevated BP w/o Hx of HTN Discharge - Discharge Plan Condition: Stable Disposition: HOME Prescriptions: Ciprofloxacin 0.3% OPTH.STIVEN* [Cipro 0.3% Opth*] 2 drop BOTH EYES Q2H #1 btl Patient Education Materials: Conjunctivitis (ED), Low-Sodium Diet (ED) Referrals: Daljit SEPULVEDA,Carla [Medical Doctor] - 3 Days Sarmad Lopez MD [Primary Care Provider] - 3 Days Additional Instructions: 1-Please apply ophthalmic drops as instructed and finish the full course of treatment to avoid recurrent infection. 2-If you do not improve or if symptoms worsen please f/u with rip saw operator for further evaluation and treatment 3- Your BP is elevated today. please decrease salt in your diet, monitor BP and if it continues to be elevated please f/u with your PCP in 1-2 days for further management
== END 2017-03-24 18:48 | disposition home or self-care (01) ==
LOC: UCCORT 16:34
DX: H57.8 Other specified disorders of eye and adnexa (principal); H10.33 Unspecified acute conjunctivitis, bilateral; R03.0 Elevated blood-pressure reading, without diagnosis of hypertension; E03.9 Hypothyroidism, unspecified; N28.9 Disorder of kidney and ureter, unspecified; K59.00 Constipation, unspecified; Z90.710 Acquired absence of both cervix and uterus; Z88.2 Allergy status to sulfonamides; Z88.1 Allergy status to other antibiotic agents; Z91.041 Radiographic dye allergy status; Z91.040 Latex allergy status; Z91.013 Allergy to seafood
CPT/HCPCS: 99212; G0463